=== PATIENT | male | born 1935 | race Caucasian/White ===

== ENCOUNTER 2018-06-30 18:13 | Observation (INO) ==
[2018-06-30] MEDS ORDERED: traMADol 50 MG TABLET PO PRN (21:24)
[2018-06-30] MEDS ORDERED: Acetaminophen 325 MG TABLET PO PRN (21:24)
[2018-06-30] MEDS ORDERED: Naloxone 0.4 MG/ML INJ IVP PRN (21:24)
[2018-06-30] MEDS ORDERED: D5% in Water 1,000 ML IVC PRN (21:26)
[2018-06-30] MEDS ORDERED: Dextrose Gel 15 GM/37.5 ML TUBE PO PRN ×2 (21:26)
[2018-06-30] MEDS ORDERED: *HR* Dextrose 50 % in Water (Syg) 50 ML SYRINGE IVP PRN (21:26)
--- NOTE | 2018-06-30 21:34 | Internal Med History&Physical ---
<Ryan Mcintosh - Last Filed: 06/30/18 22:09> Date of Encounter: 06/30/18 Time of Encounter: 21:29 Internal Medicine - H&P: HPI Chief complaint: weakness Admitted From: Hospital to Hospital Transfer Plans for Post Hospital Care: Home History of present illness: Mr. Rubio is a 82 year old male with past medical history of CVA with residual weakness, type 2 diabetes, hyperlipidemia, hypertension who presents to [facility] emergency department with complaint of weakness since this morning. He states that he felt sudden onset weakness while sitting on the toilet and was unable to get back up. He spent approximately 3 hours on the toilet before his found him and called EMS. He states he has experienced this one time before approximately 5 months ago where he was diagnosed with UTI and discharged without being admitted on antibiotic. He denies any focal weakness or loss of consciousness during this time. He does admit to some dysuria but denies any frequency, hematuria, flank pain, changes in bowel movements, dizziness, lightheadedness, nausea, vomiting, flank pain, fevers, chills. He states his bowel movements have been normal without any evidence of blood and is not experiencing any confusion or altered mental status. In the [facility] instrument, vitals were grossly unremarkable. Laboratory results were significant for a white count of 22.4 and a BUNs/creatinine of 28/ 1.90 which is around his baseline. They did not obtain a head CT at that time which was negative for acute process as well as a chest x-ray which showed possible atelectasis otherwise within normal limits. Urinalysis shows evidence of nitrites and leukocyte esterase with bacteria and was sent for culture. Those results are pending. Past medical history as above Past surgical history noncontributory Past social history: Remote history of smoking, drinks 1-2 glasses of wine per week, denies any drug use Family history: Patient denies Past Med Surg Social Fam HX - Past Medical History Medical history: CVA, diabetes, hyperlipidemia, hypertension Additional medical history: CVA x4 Psychiatric history: no psych history - Past Surgical History Additional surgical history: left knee surgery - Social History Smoking Status: Light tobacco smoker Smokeless Tobacco Status: No Alcohol use: none Drug use: none - Family History Father Age at : 54 Cause of : Brain tumor Hx Family Cancer: Yes (Brain Tumor) Mother Age at : 76 Internal Medicine - H&P: Meds Citalopram [CeleXA] 40 mg PO DAILY 05/15/17 [History] Clopidogrel [Plavix] 75 mg PO DAILY 05/15/17 [History] Gabapentin [Neurontin] 300 mg PO TID 05/15/17 [History] Ibuprofen [Motrin] 800 mg PO Q8HR 05/15/17 [History] Lisinopril/Hydrochlorothiazide [Zestoretic 10-12.5 mg Tablet] 1 each PO DAILY [History] Simvastatin [Zocor] 20 mg PO HS 05/15/17 [History] 3 Allergy/AdvReac Type Severity Reaction Status Date / Time Penicillins Allergy See Verified 06/12/18 22:32 Comments All Systems PM: A 10-system review of systems was performed and is negative for pertinent findings except as documented above in the HPI. - Constitutional Constitutional: weakness, no anorexia, no chills, no fever(s), no falls - Cardiovascular Cardiovascular ROS IM: edema (Chronic), no chest pain, no diaphoresis, no dyspnea, no dyspnea on exertion - Respiratory Respiratory: no cough, no dyspnea, no wheezing - Gastrointestinal Gastrointestinal: no abdominal pain, no constipation, no diarrhea, no hematochezia, no melena, no nausea, no vomiting - Genitourinary Genitourinary ROS male: dysuria, no flank pain, no urinary frequency, no urinary hesitancy, no urinary incontinence, no urinary urgency - Musculoskeletal Musculoskeletal ROS IM: tingling (Chronic secondary to peripheral neuropathy), no numbness - Integumentary Integumentary IM: no rash - Neurological Neurological ROS: tingling, no confusion, no dizziness, no focal weakness, no headache(s), no numbness - Constitutional Vitals: Temp Pulse Resp BP Pulse Ox 99.3 F 91 17 129/72 95 06/30/18 20:09 06/30/18 20:09 06/30/18 20:09 06/30/18 20:09 06/30/18 20:09 Exam: Gen.: Vitals noted. No acute distress. AAOx3, resting comfortably in bed HEENT: PERRL/EOMI, oropharynx clear, Normocephalic, atraumatic, mildly dry mucous membranes Cardiac: RRR, no murmur, +S1/S2 Pulmonary: CTA bilaterally, no wheezes, rales or rhonchi, equal chest expansion , decreased breath sounds at bases Abdomen: soft, nontender, BS noted, no guarding, no rebound. Extremities: 3+ BLE edema, nontender calf, no cyanosis or clubbing Neuro: A&Ox3, moves all extremities, no focal deficits. Very mild weakness of right lower extremity which is consistent with baseline Psych: Appropriate mood and behavior - Assessment and plan (1) Sepsis Current Visit: Yes Status: Acute Assessment and plan: - Sirs criteria 2/4 with suspected source of urine - Urinalysis in [facility] show signs of infection with positive nitrites, leukocyte esterase, WBCs - Patient does not appear septic at this time however he does meet criteria - Lactic acid drawn and [facility] of 1.7 - Previous urine cultures from 2017 show Klebsiella which is nearly pansensitive with only exception of Macrobid - Started on Cipro emergency department at [facility] - Heart rate 91, WBC of 22. Low suspicion for pyelonephritis at this time as he is not demonstrating systemic symptoms and is not having flank pain or tenderness - Bloody and urine cultures drawn in [facility] Plan - Continue Cipro and await culture sensitivities - Consider CT if patient does not improve or worsens - Patient appears mildly dry on exam however is tolerating a diet, we will hold off on fluids for this time and continue to monitor Qualifiers: Sepsis type: sepsis due to unspecified organism Qualified Code(s): A41.9 - Sepsis, unspecified organism (2) UTI (urinary tract infection) Current Visit: Yes Status: Acute Assessment and plan: As above for sepsis Qualifiers: Urinary tract infection type: acute cystitis Hematuria presence: without hematuria Qualified Code(s): N30.00 - Acute cystitis without hematuria (3) Diabetes mellitus Current Visit: Yes Status: Chronic Assessment and plan: - [id number] 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 - Blood sugar presentation to [facility] was 189 - We will start sliding-scale insulin low regimen - A1c with morning labs Qualifiers: Diabetes mellitus type: type 2 Diabetes mellitus residential insulin use: without residential use Diabetes mellitus complication status: with kidney complications Diabetes mellitus complication detail: with chronic kidney disease Chronic kidney disease stage: stage 3 (moderate) Qualified Code(s): E11.22 - Type 2 diabetes mellitus with diabetic chronic kidney disease; N18.3 - Chronic kidney disease, stage 3 (moderate) (4) CKD (chronic kidney disease) stage 3, GFR 30-59 ml/min Current Visit: Yes Status: Chronic Assessment and plan: - BUN/Cr of 28/1.90 which appears to be near baseline - Cr of 1.8 in May and previously 1.5-1.8 - Will continue to monitor and renally dose meds as necessary (5) HTN (hypertension) Current Visit: Yes Status: Acute Assessment and plan: - Moderately well controlled at 144/68 on presentation - Will continue home lisinopril/HCTZ as his kidney function appears stable Qualifiers: Hypertension type: essential hypertension Qualified Code(s): I10 - Essential (primary) hypertension (6) DVT prophylaxis Current Visit: Yes Status: Acute Assessment and plan: Heparin 5000 units every 12 hours (7) HLD (hyperlipidemia) Current Visit: Yes Status: Acute Assessment and plan: continue home statin Qualifiers: Hyperlipidemia type: unspecified Qualified Code(s): E78.5 - Hyperlipidemia , unspecified - Time Spent With Patient Total time spent is greater than 50% in coordination of care (as documented) at patient's floor/unit and/or counseling patient: <Felipe Cain - Last Filed: 06/30/18 23:45> Date of Encounter: 06/30/18 Internal Medicine - H&P: HPI History of present illness: Mr. Rubio is a 82 year old male All Systems PM: A 10-system review of systems was performed and is negative for pertinent findings except as documented above in the HPI. - Constitutional Vitals: Temp Pulse Resp BP Pulse Ox 98.8 F 88 16 135/66 99 06/30/18 22:46 06/30/18 22:46 06/30/18 22:46 06/30/18 22:46 06/30/18 22:46 Internal Med - H&P Results - Labs CBC & Chem 7: 06/30/18 23:03 Labs: Short CBC 06/30/18 Range/Units 23:03 WBC 22.6 H (4.3-11.1) K/mcL Hgb 12.0 L (12.9-16.9) g/dL Hct 34.4 L (37.5-50.1) % Plt Count 161 (140-400) K/mcL Neutrophils # 18.4 H (1.6-8.9) K/mcL - Attending Attestation I have seen and examined the patient with Dr. Mcintosh and agree with his/ her assessment and plan. 82-year-old male with past sacral history of CAD, diabetes, hypertension, CVA, previous UTI, presented to the ED with weakness. He was temp of 99.3 and heart rate of 91 on presentation. His physical exam was benign with soft, nontender abdomen without CVA tenderness. Lab work showed leukocytosis of 22 and creatinine at 1.9 which is close to his baseline. Urinalysis was positive for leukocyte esterase and nitrite. Otherwise, lactic acid was normal and chest x-ray/CT head were unremarkable. He was given IV Cipro and was transferred to [facility] for further management. 2 out of 4 SIRS criteria positive for leukocytosis and HR >90. Source of infection from urine. Will treat as sepsis secondary to UTI. Previous urine culture was positive for Klebsiella pneumonia which was sensitive to Cipro therefore will continue IV Cipro given that he has unknown allergy to penicillin. We will also start Flomax given the high likelihood of underlying BPH. Follow-up on urine culture. Felipe Cain MD - Assessment and plan (1) UTI (urinary tract infection) Current Visit: Yes Status: Acute Qualifiers: Urinary tract infection type: acute cystitis Hematuria presence: without hematuria Qualified Code(s): N30.00 - Acute cystitis without hematuria (2) Sepsis Current Visit: Yes Status: Acute Qualifiers: Sepsis type: sepsis due to unspecified organism Qualified Code(s): A41.9 - Sepsis, unspecified organism (3) DVT prophylaxis Current Visit: Yes Status: Acute (4) Diabetes mellitus Current Visit: Yes Status: Chronic Qualifiers: Diabetes mellitus type: type 2 Diabetes mellitus residential insulin use: without exterminator helper use Diabetes mellitus complication status: with kidney complications Diabetes mellitus complication detail: with chronic kidney disease Chronic kidney disease stage: stage 3 (moderate) Qualified Code(s): E11.22 - Type 2 diabetes mellitus with diabetic chronic kidney disease; N18.3 - Chronic kidney disease, stage 3 (moderate) (5) CKD (chronic kidney disease) stage 3, GFR 30-59 ml/min Current Visit: Yes Status: Chronic (6) HTN (hypertension) Current Visit: Yes Status: Acute Qualifiers: Hypertension type: essential hypertension Qualified Code(s): I10 - Essential (primary) hypertension (7) HLD (hyperlipidemia) Current Visit: Yes Status: Acute Qualifiers: Hyperlipidemia type: unspecified Qualified Code(s): E78.5 - Hyperlipidemia , unspecified - Time Spent With Patient Total time spent is greater than 50% in coordination of care (as documented) at patient's floor/unit and/or counseling patient:
[2018-06-30] MEDS: *HR* Heparin 5,000 UNIT/ML VIAL SQ SCH (23:11)
[2018-06-30 23:17] LABS: Basophils % 0.2 %; Eosinophils % 0.1 %; Immature Granulocytes % 0.7 % (0-4); Segmented Neutrophils % 81.2 %
[2018-06-30 23:20] LABS: Basophils # 0.1 K/mcL (0.0-0.2); Hematocrit 34.4 % (37.5-50.1); Lymphocytes # 2.2 K/mcL (0.6-4.6); Lymphocytes % 9.5 %; Mean Corpuscular HGB Conc 34.9 g/dL (31.6-35.5); Mean Corpuscular Hemoglobin 30.5 pg (28.0-33.3); Mean Corpuscular Volume 87.5 fL (83.0-100.0); Mean Platelet Volume 9.2 fL (9.4-12.4); Monocytes # 1.9 K/mcL (0.0-1.3); Monocytes % 8.3 %; Neutrophils # 18.4 K/mcL (1.6-8.9); Platelet Count 161 K/mcL (140-400); Red Blood Count 3.93 M/mcL (4.19-5.50); Red Cell Distribution Width 13.7 % (11.5-14.5)
[2018-06-30 23:36] LABS: Platelet Estimate Normal (Normal)
[2018-07-01 04:46] LABS: Calcium 8.5 mg/dL (8.6-10.3); Potassium 3.9 mEq/L (3.5-5.1)
[2018-07-01 05:20] LABS: Basophils % 0.2 %; Eosinophils % 0.2 %; Hematocrit 33.7 % (37.5-50.1); Hemoglobin 11.5 g/dL (12.9-16.9); Immature Granulocytes % 0.5 % (0-4); Lymphocytes # 2.1 K/mcL (0.6-4.6); Lymphocytes % 11.9 %; Mean Corpuscular HGB Conc 34.1 g/dL (31.6-35.5); Mean Corpuscular Hemoglobin 31.2 pg (28.0-33.3); Mean Corpuscular Volume 91.3 fL (83.0-100.0); Mean Platelet Volume 8.9 fL (9.4-12.4); Monocytes # 1.5 K/mcL (0.0-1.3); Monocytes % 8.3 %; Neutrophils # 13.8 K/mcL (1.6-8.9); Platelet Count 216 K/mcL (140-400); Red Blood Count 3.69 M/mcL (4.19-5.50); Red Cell Distribution Width 13.9 % (11.5-14.5); Segmented Neutrophils % 78.9 %
[2018-07-01] MEDS: Insulin LISPRO 300 UNITS/3 ML VIAL SQ SCH ×4 (08:25→20:43)
[2018-07-01] MEDS: Gabapentin 300 MG CAPSULE PO SCH ×3 (08:26→20:16)
[2018-07-01] MEDS: *HR* Heparin 5,000 UNIT/ML VIAL SQ SCH ×3 (08:26→23:44)
[2018-07-01 09:29] LABS: Estimated Average Glucose 140 mg/dl; Hemoglobin A1C 6.5 %
--- NOTE | 2018-07-01 17:06 | Internal Med Progress Note ---
Hospitalist Progress Note - Encounter Date of Encounter: 07/01/18 Time of Encounter: 09:55 - Subjective Interval History: Pt was seen and assessed at bedside at 0955. Pt is alert and awake, answers questions appropriately He states that he is feeling better than yesterday, but isn't back to baseline. - Exam Vitals: Temp Pulse Resp BP Pulse Ox 99.7 F H 97 16 149/84 94 07/01/18 15:41 07/01/18 15:41 07/01/18 15:41 07/01/18 15:41 07/01/18 15:41 Exam: General: Pt resting quietly on bed, no distress. Skin: pwd, no rashes, lesions, redness Neurological: Pt is alert and awake, oriented x 3, Speech is clear, PERRLA, EOMI , no nystagmus, no pronator drift. strength equal x 4 extremities HEENT: mucous mumbranes moist, no conjuctival pallor Neck: supple, no tracheal deviation, no lymphadenopathy, tenderness, no thyromegaly Heart: S1S2 heard without gallops, clicks, murmurs, no bradycardia or tachycardia, pt has no peripheral edema, pedal and radial pulses palpable bilaterally. Lungs: clear throughout without wheezing, rales, or ronchi, respirations are unlabored Abdomen: soft and non tender with bowel sound present, no hepatomegaly. Psych: Normal affect with good eye contact - Assessment and Plan (1) UTI (urinary tract infection) Current Visit: Yes Status: Inactive Assessment and Plan: As above for sepsis. Continue Cipro. (2) Sepsis Current Visit: Yes Status: Acute Assessment and Plan: - Sirs criteria 2/4 with suspected source is urine - Urinalysis in [facility] showed signs of infection with positive nitrites, leukocyte esterase, WBCs - Lactic acid within normal limits - Previous urine cultures from 2017 show Klebsiella which is nearly pansensitive with only exception of Macrobid - Started on Cipro IV, continue. - Heart rate 81, leukocytosis improving. 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 - A1c 6.5%. Well controlled. (5) CKD (chronic kidney disease) stage 3, GFR 30-59 ml/min Current Visit: Yes Status: Chronic Assessment and Plan: 1.76/37 Appears to be at baseline. Continue to avoid nephrotoxins. (6) HTN (hypertension) Current Visit: Yes Status: Chronic Assessment and Plan: Well-controlled. Continue current medications. - Will continue home lisinopril/HCTZ as his kidney function appears stable (7) HLD (hyperlipidemia) Current Visit: Yes Status: Acute Assessment and Plan: Chronic. Continue home medications. - Time Spent with Patient Total time spent is greater than 50% in coordination of care (as documented) at patient's floor/unit and/or counseling patient: less than 15 minutes Plan of Care Discussed with: patient Internal Medicine: Result - Labs CBC & Chem 7: 07/01/18 04:09 07/01/18 04:09 Labs: Short CBC 06/30/18 07/01/18 Range/Units 23:03 04:09 WBC 22.6 H 17.5 H (4.3-11.1) K/mcL Hgb 12.0 L 11.5 L (12.9-16.9) g/dL Hct 34.4 L 33.7 L (37.5-50.1) % Plt Count 161 216 (140-400) K/mcL Neutrophils # 18.4 H 13.8 H (1.6-8.9) K/mcL BMP 07/01/18 04:09 Sodium 135 L Potassium 3.9 Chloride 102 Carbon Dioxide 26 BUN 26 H Creatinine 1.76 H Glucose 146 H Calcium 8.5 L Consult Discharge Plan - Plan Referrals: Blair Lemus MD [Primary Care Provider] - (1) UTI (urinary tract infection) Qualifiers: Urinary tract infection type: acute cystitis Hematuria presence: without hematuria Qualified Code(s): N30.00 - Acute cystitis without hematuria (2) Sepsis Qualifiers: Sepsis type: sepsis due to unspecified organism Qualified Code(s): A41.9 - Sepsis, unspecified organism (4) Diabetes mellitus Qualifiers: Diabetes mellitus type: type 2 Diabetes mellitus terminal operator insulin use: without group home use Diabetes mellitus complication status: with kidney complications Diabetes mellitus complication detail: with chronic kidney disease Chronic kidney disease stage: stage 3 (moderate) Qualified Code(s): E11.22 - Type 2 diabetes mellitus with diabetic chronic kidney disease; N18.3 - Chronic kidney disease, stage 3 (moderate) (6) HTN (hypertension) Qualifiers: Hypertension type: essential hypertension Qualified Code(s): I10 - Essential (primary) hypertension (7) HLD (hyperlipidemia) Qualifiers: Hyperlipidemia type: unspecified Qualified Code(s): E78.5 - Hyperlipidemia, unspecified
[2018-07-02 05:23] LABS: Basophils % 0.3 %; Eosinophils # 0.1 K/mcL (0.0-0.6); Eosinophils % 0.8 %; Hematocrit 34.1 % (37.5-50.1); Hemoglobin 11.4 g/dL (12.9-16.9); Immature Granulocytes % 0.4 % (0-4); Lymphocytes # 1.9 K/mcL (0.6-4.6); Lymphocytes % 12.2 %; Mean Corpuscular HGB Conc 33.4 g/dL (31.6-35.5); Mean Corpuscular Hemoglobin 30.7 pg (28.0-33.3); Mean Corpuscular Volume 91.9 fL (83.0-100.0); Mean Platelet Volume 8.5 fL (9.4-12.4); Monocytes # 1.4 K/mcL (0.0-1.3); Monocytes % 9.2 %; Platelet Count 174 K/mcL (140-400); Red Blood Count 3.71 M/mcL (4.19-5.50); Red Cell Distribution Width 13.8 % (11.5-14.5); Segmented Neutrophils % 77.1 %
[2018-07-02 05:49] LABS: Calcium 8.4 mg/dL (8.6-10.3); Potassium 3.6 mEq/L (3.5-5.1)
[2018-07-02] MEDS: Gabapentin 300 MG CAPSULE PO SCH ×3 (09:11→20:28)
[2018-07-02] MEDS: *HR* Heparin 5,000 UNIT/ML VIAL SQ SCH ×3 (09:12→23:38)
[2018-07-02] MEDS: Insulin LISPRO 300 UNITS/3 ML VIAL SQ SCH ×4 (09:13→20:22)
--- NOTE | 2018-07-02 17:24 | Internal Med Progress Note ---
Hospitalist Progress Note - Encounter Date of Encounter: 07/02/18 Time of Encounter: 09:40 - Subjective Interval History: Pt was seen and assessed at bedside at 0940. Pt is alert and awake, answers questions appropriately. Pt has been up to bedside today and tolerates it well. He states that he is feeling better than yesterday, but isn't back to baseline. - Exam Vitals: Temp Pulse Resp BP Pulse Ox 97.3 F L 88 17 142/73 95 07/02/18 15:48 07/02/18 15:48 07/02/18 15:48 07/02/18 15:48 07/02/18 15:48 Exam: General: Pt resting quietly on bed, no distress. Skin: pwd, no rashes, lesions, redness Neurological: Pt is alert and awake, oriented x 3, Speech is clear, PERRLA, EOMI , no nystagmus, no pronator drift. strength equal x 4 extremities HEENT: mucous mumbranes moist, no conjuctival pallor Neck: supple, no tracheal deviation, no lymphadenopathy, tenderness, no thyromegaly Heart: S1S2 heard without gallops, clicks, murmurs, no bradycardia or tachycardia, pt has no peripheral edema, pedal and radial pulses palpable bilaterally. Lungs: clear throughout without wheezing, rales, or ronchi, respirations are unlabored Abdomen: soft and non tender with bowel sound present, no hepatomegaly. Obese, rounded. Psych: Normal affect with good eye contact - Assessment and Plan (1) UTI (urinary tract infection) Current Visit: Yes Status: Acute Assessment and Plan: As above for sepsis. Continue IV Cipro. Pt is asymptomatic. (2) Sepsis Current Visit: Yes Status: Acute Assessment and Plan: - Sirs criteria 2/4 with suspected source is urine (leukocytosis and tachycardia ) - Urinalysis in [place] ER showed signs of infection with positive nitrites, leukocyte esterase, WBCs - Lactic acid within normal limits - Urine cx shows Gram negative rods - Started on Cipro IV, continue. - Blood cultures pending. Plan - Continue Cipro and await culture sensitivities - Consider CT if patient does not improve or worsens (3) DVT prophylaxis Current Visit: Yes Status: Acute Assessment and Plan: Heparin 5000 BID (4) Diabetes mellitus Current Visit: Yes Status: Chronic Assessment and Plan: Type 2 diabetes CKD III Sliding scale insulin, Accu-Cheks before meals at bedtime, diabetic diet. - A1c 6.5%. Well controlled. (5) CKD (chronic kidney disease) stage 3, GFR 30-59 ml/min Current Visit: Yes Status: Chronic Assessment and Plan: 1., renal function continues to improve Appears to be at baseline. Continue to avoid nephrotoxins. (6) HTN (hypertension) Current Visit: Yes Status: Chronic Assessment and Plan: Well-controlled. Continue current medications. Will continue home lisinopril/HCTZ as his kidney function appears stable (7) HLD (hyperlipidemia) Current Visit: Yes Status: Chronic Assessment and Plan: Chronic. Continue home medications. (8) Leukocytosis Current Visit: Yes Status: Acute Assessment and Plan: Likely secondary to UTI, improving. Continue IV antbiotics, monitor labs and vitals. - Time Spent with Patient Total time spent is greater than 50% in coordination of care (as documented) at patient's floor/unit and/or counseling patient: less than 15 minutes Plan of Care Discussed with: patient Internal Medicine: Result - Labs CBC & Chem 7: 07/02/18 04:49 07/02/18 04:49 Labs: Short CBC 07/02/18 Range/Units 04:49 WBC 15.6 H (4.3-11.1) K/mcL Hgb 11.4 L (12.9-16.9) g/dL Hct 34.1 L (37.5-50.1) % Plt Count 174 (140-400) K/mcL Neutrophils # 12.0 H (1.6-8.9) K/mcL BMP 07/02/18 04:49 Sodium 137 Potassium 3.6 Chloride 104 Carbon Dioxide 23 BUN 24 H Creatinine 1.53 H Glucose 147 H Calcium 8.4 L Consult Discharge Plan - Plan Referrals: Blair Lemus MD [Primary Care Provider] - (1) UTI (urinary tract infection) Qualifiers: Urinary tract infection type: acute cystitis Hematuria presence: without hematuria Qualified Code(s): N30.00 - Acute cystitis without hematuria (2) Sepsis Qualifiers: Sepsis type: sepsis due to unspecified organism Qualified Code(s): A41.9 - Sepsis, unspecified organism (4) Diabetes mellitus Qualifiers: Diabetes mellitus type: type 2 Diabetes mellitus fci insulin use: without terminal makeup operator use Diabetes mellitus complication status: with kidney complications Diabetes mellitus complication detail: with chronic kidney disease Chronic kidney disease stage: stage 3 (moderate) Qualified Code(s): E11.22 - Type 2 diabetes mellitus with diabetic chronic kidney disease; N18.3 - Chronic kidney disease, stage 3 (moderate) (6) HTN (hypertension) Qualifiers: Hypertension type: essential hypertension Qualified Code(s): I10 - Essential (primary) hypertension (7) HLD (hyperlipidemia) Qualifiers: Hyperlipidemia type: unspecified Qualified Code(s): E78.5 - Hyperlipidemia, unspecified (8) Leukocytosis Qualifiers: Leukocytosis type: unspecified Qualified Code(s): D72.829 - Elevated white blood cell count, unspecified
[2018-07-03 05:30] LABS: Basophils % 0.3 %; Eosinophils # 0.2 K/mcL (0.0-0.6); Eosinophils % 1.5 %; Hematocrit 34.2 % (37.5-50.1); Hemoglobin 11.3 g/dL (12.9-16.9); Immature Granulocytes % 0.4 % (0-4); Lymphocytes # 1.9 K/mcL (0.6-4.6); Lymphocytes % 14.9 %; Mean Corpuscular Hemoglobin 30.5 pg (28.0-33.3); Mean Corpuscular Volume 92.2 fL (83.0-100.0); Mean Platelet Volume 8.6 fL (9.4-12.4); Monocytes # 1.1 K/mcL (0.0-1.3); Neutrophils # 9.3 K/mcL (1.6-8.9); Platelet Count 181 K/mcL (140-400); Red Blood Count 3.71 M/mcL (4.19-5.50); Red Cell Distribution Width 13.6 % (11.5-14.5); Segmented Neutrophils % 73.9 %
[2018-07-03 05:53] LABS: Calcium 8.3 mg/dL (8.6-10.3); Potassium 3.9 mEq/L (3.5-5.1)
[2018-07-03] MEDS: Gabapentin 300 MG CAPSULE PO SCH ×3 (08:37→20:38)
[2018-07-03] MEDS: *HR* Heparin 5,000 UNIT/ML VIAL SQ SCH ×3 (08:37→23:04)
[2018-07-03] MEDS: Insulin LISPRO 300 UNITS/3 ML VIAL SQ SCH ×4 (08:37→20:39)
--- NOTE | 2018-07-03 11:02 | Discharge Summary ---
Date of Encounter: 07/03/18 Time of Encounter: 09:30 - Discharge Diagnosis (1) UTI (urinary tract infection) Priority: Primary Status: Acute Assessment and Plan: As above for sepsis. Pt is asymptomatic. Initial culture shows GNR. Proteus hauseri susceptible to Cipro. Continue po Cipro. Qualifiers: Urinary tract infection type: acute cystitis Hematuria presence: without hematuria Qualified Code(s): N30.00 - Acute cystitis without hematuria (2) Sepsis Priority: Secondary Status: Resolved Assessment and Plan: - Sirs criteria 2/4 with suspected source is urine (leukocytosis and tachycardia ) on admission - Urinalysis in [facility] showed signs of infection with positive nitrites, leukocyte esterase, WBCs - Lactic acid within normal limits - Urine cx grew Proteus hauseri - Started on Cipro IV, will continue Cipro po after discharge. - Blood cultures no growth. Qualifiers: Sepsis type: sepsis due to unspecified organism Qualified Code(s): A41.9 - Sepsis, unspecified organism (3) DVT prophylaxis Priority: Secondary Status: Acute Assessment and Plan: Heparin 5000 BID (4) Diabetes mellitus Priority: Secondary Status: Chronic Assessment and Plan: DMII, well controlled. A1c 6.5%. Continue home medications, accuchecks achs and diabetic diet. Qualifiers: Diabetes mellitus type: type 2 Diabetes mellitus post framer insulin use: without post framer use Diabetes mellitus complication status: with kidney complications Diabetes mellitus complication detail: with chronic kidney disease Chronic kidney disease stage: stage 3 (moderate) Qualified Code(s): E11.22 - Type 2 diabetes mellitus with diabetic chronic kidney disease; N18.3 - Chronic kidney disease, stage 3 (moderate) (5) CKD (chronic kidney disease) stage 3, GFR 30-59 ml/min Priority: Secondary Status: Chronic Assessment and Plan: 1.8036, renal function continues to improve Appears to be at baseline. Continue to avoid nephrotoxins. (6) HTN (hypertension) Priority: Secondary Status: Chronic Assessment and Plan: Well-controlled. Continue current medications. Qualifiers: Hypertension type: essential hypertension Qualified Code(s): I10 - Essential (primary) hypertension (7) HLD (hyperlipidemia) Priority: Secondary Status: Chronic Assessment and Plan: Chronic. Continue home medications. Qualifiers: Hyperlipidemia type: unspecified Qualified Code(s): E78.5 - Hyperlipidemia , unspecified (8) Leukocytosis Priority: Secondary Status: Acute Assessment and Plan: Likely secondary to UTI, improving, almost back to baseline. Continue antibiotics on discharge Qualifiers: Leukocytosis type: unspecified Qualified Code(s): D72.829 - Elevated white blood cell count, unspecified (9) Morbid obesity Priority: Secondary Status: Chronic Assessment and Plan: Chronic. Encourage lifestyle modifications. Hospital course: Please see assessment and plan for hospital course. Discharge discussed with: patient, nurse - Time Spent with Patient Total time spent providing and/or coordinating discharge services: Less than 30 minutes - Discharge Medications Prescriptions: Ciprofloxacin [Cipro] 500 mg PO BID #8 tablet Home Medications: Citalopram [CeleXA] 40 mg PO DAILY 05/15/17 [History] Clopidogrel [Plavix] 75 mg PO DAILY 05/15/17 [History] Gabapentin [Neurontin] 300 mg PO TID 05/15/17 [History] Simvastatin [Zocor] 20 mg PO HS 05/15/17 [History] Furosemide [Lasix] 20 mg PO DAILY 07/01/18 [History] Iron Ps Cmplx/Vit B12/FA [Poly-Iron 150 Forte Capsule] 1 cap PO DAILY 07/01/18 [ History] Multivits,Ca,Min/Iron/FA/Lycop [Centrum Men's Tablet] 3 tab PO DAILY 07/01/18 [ History] Potassium Chloride [Klor-Con 10] 10 meq PO BID 07/01/18 [History] Ciprofloxacin [Cipro] 500 mg PO BID #8 tablet 07/03/18 [Rx] Allergies/Adverse Reactions: 3 Allergy/AdvReac Type Severity Reaction Status Date / Time Penicillins Allergy See Verified 06/12/18 22:32 Comments Date of admission: 06/30/18 19:44 Primary care physician: Blair Lemus MD Consults: 07/01/18 07:15 Consult to Physical Therapy [CONS] Routine Comment: Evaluate, develop and implement POC Reason for Consult: discharge needs Does patient have active BEDREST order?: No Is patient medically & hemodynamically stable?: Yes 07/01/18 07:16 Consult to Occupational Therapy [CONS] Routine Comment: Evaluate, develop and implement POC Reason for Consult: discharge needs Does patient have active BEDREST order?: No Is patient medically & hemodynamically stable?: Yes Discharging clinician: Zaida Grissom Anticipated date of discharge: 07/03/18 - Constitutional Vitals: Temp Pulse Resp BP Pulse Ox 97.9 F 72 15 122/67 95 07/03/18 06:39 07/03/18 06:39 07/03/18 06:39 07/03/18 06:39 07/03/18 06:39 General appearance: Present: cooperative, mild distress, morbidly obese, pleasant, answers questions appropriately - Head Head exam: Present: atraumatic, normocephalic - Eye Eye exam: Present: EOMI, normal appearance, PERRL, conjuntiva pink, sclera anicteric. Absent: nystagmus Pupils: Present: PERRL - Neck Neck exam general surgery: Present: supple, trachea midline. Absent: lymphadenopathy, tenderness - Respiratory Respiratory exam: Present: CTAB. Absent: accessory muscle use, chest wall tenderness, rales, respiratory distress, rhonchi, wheezes - Cardiovascular Cardiovascular exam: Present: RRR, +S1, +S2. Absent: diastolic murmur, gallop, rubs, systolic murmur - GI/Abdominal GI/Abdominal exam: Present: normal bowel sounds, soft, no peritoneal signs. Absent: distended, hepatomegaly, tenderness - Extremities Exam Extremities exam: Present: normal capillary refill, normal inspection, pedal edema, warm. Absent: calf tenderness, cyanotic, tenderness - Neurological Exam Neurological exam: Present: alert, oriented X3, no focal deficits. Absent: altered, facial droop, speech deficit - Skin Skin exam: Present: dry, intact, normal color, warm. Absent: rash - Patient Status Disposition: Transfer Inpatient Rehab Fac Condition: Good Overall status at discharge: patient is progressing back to baseline - Discharge Instructions Instructions: Renal Failure Diet (DC) Follow Up With: Blair Lemus MD [Primary Care Provider] - - Diet and Activity Activity: as per physical therapy, increase activity as tolerated Diet: diabetic diet, low fat, low cholesterol
[2018-07-04 06:51] VITALS: BP 129/69
[2018-07-04] MEDS: Insulin LISPRO 300 UNITS/3 ML VIAL SQ SCH (08:20)
[2018-07-04] MEDS: *HR* Heparin 5,000 UNIT/ML VIAL SQ SCH (08:20)
[2018-07-04] MEDS: Gabapentin 300 MG CAPSULE PO SCH (08:20)
[2018-07-04 10:12] LABS: Basophils # 0.1 K/mcL (0.0-0.2); Basophils % 0.6 %; Eosinophils # 0.2 K/mcL (0.0-0.6); Hematocrit 36.4 % (37.5-50.1); Hemoglobin 12.3 g/dL (12.9-16.9); Immature Granulocytes % 0.7 % (0-4); Lymphocytes # 1.5 K/mcL (0.6-4.6); Lymphocytes % 13.9 %; Mean Corpuscular HGB Conc 33.8 g/dL (31.6-35.5); Mean Corpuscular Hemoglobin 31.2 pg (28.0-33.3); Mean Corpuscular Volume 92.4 fL (83.0-100.0); Mean Platelet Volume 9.9 fL (9.4-12.4); Monocytes # 0.8 K/mcL (0.0-1.3); Monocytes % 7.4 %; Neutrophils # 7.9 K/mcL (1.6-8.9); Platelet Count 197 K/mcL (140-400); Red Blood Count 3.94 M/mcL (4.19-5.50); Red Cell Distribution Width 13.3 % (11.5-14.5); Segmented Neutrophils % 75.4 %
[2018-07-04 10:52] LABS: Calcium 8.2 mg/dL (8.6-10.3); Potassium 4.1 mEq/L (3.5-5.1)
--- NOTE | 2018-07-04 10:56 | Physician Discharge Referral ---
ExtendedCare Referral Info Provider in Charge after Transfer: PCP Institutional Level of Care: Skilled - Diagnosis (1) UTI (urinary tract infection) Priority: Primary Status: Acute (2) Sepsis Priority: Secondary Status: Resolved (3) DVT prophylaxis Priority: Secondary Status: Acute (4) Diabetes mellitus Priority: Secondary Status: Chronic (5) CKD (chronic kidney disease) stage 3, GFR 30-59 ml/min Priority: Secondary Status: Chronic (6) HTN (hypertension) Priority: Secondary Status: Chronic (7) HLD (hyperlipidemia) Priority: Secondary Status: Chronic (8) Leukocytosis Priority: Secondary Status: Acute (9) Morbid obesity Priority: Secondary Status: Chronic Prognosis: Good Aware of Diagnosis: Patient Aware of Prognosis: Patient - Transfer Medications Prescriptions: Ciprofloxacin [Cipro] 500 mg PO BID #8 tablet Home Medications: Citalopram [CeleXA] 40 mg PO DAILY 05/15/17 [History] Clopidogrel [Plavix] 75 mg PO DAILY 05/15/17 [History] Gabapentin [Neurontin] 300 mg PO TID 05/15/17 [History] Simvastatin [Zocor] 20 mg PO HS 05/15/17 [History] Furosemide [Lasix] 20 mg PO DAILY 07/01/18 [History] Iron Ps Cmplx/Vit B12/FA [Poly-Iron 150 Forte Capsule] 1 cap PO DAILY 07/01/18 [ History] Multivits,Ca,Min/Iron/FA/Lycop [Centrum Men's Tablet] 3 tab PO DAILY 07/01/18 [ History] Potassium Chloride [Klor-Con 10] 10 meq PO BID 07/01/18 [History] Ciprofloxacin [Cipro] 500 mg PO BID #8 tablet 07/03/18 [Rx] Allergies/Adverse Reactions: 3 Allergy/AdvReac Type Severity Reaction Status Date / Time Penicillins Allergy See Verified 06/12/18 22:32 Comments - Respiratory Orders Smoking Cessation: Smoking cessation has been advised. For more information, call the [facility] Quit Line at 5-327-ORPH-NOW. - Lab Orders Lab Orders: CBC, U/A, Dejon 17 - Ancillary Orders May use pressure relief devices daily prn, May consult with Dentist, Community Marketing Manager, Petroleum Engineering Professor PRN - Advance Directives Code Status: Full Code - Mobility Orders Chair, Ambulate - Rehabiliation Orders Rehab Potential: Good Rehab Orders: ROM Exercises, Evaluation for Physical Therapy, Evaluation for Occupational Therapy - Treatments Skin tear care topically daily PRN per policy, May check for fecal impaction rectally daily PRN, Fleet enema rectally every other day PRN cleansing purposes - Diet Orders Regular CERTIFICATION: I certify that the transfer of the above named patient to an Extended Care Facility is necessary for the continuing treatment of the diagnosis listed. The above information is true and accurate reflection of patient's current condition. Confidential - Redisclosure prohibited without a patient's written consent.
--- NOTE | 2018-07-04 11:12 | Internal Med Progress Note ---
Hospitalist Progress Note - Encounter Date of Encounter: 07/04/18 Time of Encounter: 09:15 - Subjective Interval History: Pt was seen and assessed at bedside at 0915. Pt is alert and awake, answers questions appropriately. Pt has been up to bedside today and tolerates it well. He states that he is feeling well and is ready for discharge today. - Exam Vitals: Temp Pulse Resp BP Pulse Ox 97.9 F 86 16 129/69 94 07/04/18 06:50 07/04/18 06:50 07/04/18 06:50 07/04/18 06:50 07/04/18 06:50 Exam: General: Pt resting quietly on bed, no distress. Skin: pwd, no rashes, lesions, redness Neurological: Pt is alert and awake, oriented x 3, Speech is clear, PERRLA, EOMI , no nystagmus, no pronator drift. strength equal x 4 extremities HEENT: mucous mumbranes moist, no conjuctival pallor Neck: supple, no tracheal deviation, no lymphadenopathy, tenderness, no thyromegaly Heart: S1S2 heard without gallops, clicks, murmurs, no bradycardia or tachycardia, pt has +1 peripheral edema, pedal and radial pulses palpable bilaterally. Unchanged from vitis. Lungs: clear throughout without wheezing, rales, or ronchi, respirations are unlabored Abdomen: soft and non tender with bowel sound present, no hepatomegaly. Obese, rounded. Psych: Normal affect with good eye contact - Assessment and Plan (1) UTI (urinary tract infection) Current Visit: Yes Status: Acute Assessment and Plan: Proteus hauseri. Continue Cipro po at rehab. Pt is asymptomatic, vitals are stable. (2) Sepsis Current Visit: Yes Status: Resolved Assessment and Plan: Resolved. (3) DVT prophylaxis Current Visit: Yes Status: Acute Assessment and Plan: Heparin 5000mg BID. PT has been up to chair at bedside. (4) Diabetes mellitus Current Visit: Yes Status: Chronic Assessment and Plan: DMII, well controlled. A1c 6.5%. Continue home medications, accuchecks achs and diabetic diet. (5) CKD (chronic kidney disease) stage 3, GFR 30-59 ml/min Current Visit: Yes Status: Chronic Assessment and Plan: 2. Appears to be at baseline. Continue to avoid nephrotoxins. (6) HTN (hypertension) Current Visit: Yes Status: Chronic Assessment and Plan: Well-controlled. Stable. Continue current medications. (7) HLD (hyperlipidemia) Current Visit: Yes Status: Chronic Assessment and Plan: Chronic. Continue home medications. (8) Leukocytosis Current Visit: Yes Status: Acute Assessment and Plan: Resolved today Continue antibiotics on discharge No signs of SIRS or sepsis. (9) Morbid obesity Current Visit: Yes Status: Chronic Assessment and Plan: Chronic. Encourage lifestyle modifications. DVT Prophylaxis: as above - Time Spent with Patient Total time spent is greater than 50% in coordination of care (as documented) at patient's floor/unit and/or counseling patient: less than 15 minutes Plan of Care Discussed with: patient Internal Medicine: Result - Labs CBC & Chem 7: 07/04/18 09:15 07/04/18 09:15 Labs: Short CBC 07/04/18 Range/Units 09:15 WBC 10.4 (4.3-11.1) K/mcL Hgb 12.3 L (12.9-16.9) g/dL Hct 36.4 L (37.5-50.1) % Plt Count 197 (140-400) K/mcL Neutrophils # 7.9 (1.6-8.9) K/mcL BMP 07/04/18 09:15 Sodium 134 L Potassium 4.1 Chloride 102 Carbon Dioxide 21 L BUN 36 H Creatinine 2.18 H Glucose 229 H Calcium 8.2 L Consult Discharge Plan - Plan Instructions: Renal Failure Diet (DC) Referrals: Blair Lemus MD [Primary Care Provider] - Prescriptions: Ciprofloxacin [Cipro] 500 mg PO BID #8 tablet (1) UTI (urinary tract infection) Qualifiers: Urinary tract infection type: acute cystitis Hematuria presence: without hematuria Qualified Code(s): N30.00 - Acute cystitis without hematuria (2) Sepsis Qualifiers: Sepsis type: sepsis due to unspecified organism Qualified Code(s): A41.9 - Sepsis, unspecified organism (4) Diabetes mellitus Qualifiers: Diabetes mellitus type: type 2 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 use Diabetes mellitus complication status: with kidney complications Diabetes mellitus complication detail: with chronic kidney disease Chronic kidney disease stage: stage 3 (moderate) Qualified Code(s): E11.22 - Type 2 diabetes mellitus with diabetic chronic kidney disease; N18.3 - Chronic kidney disease, stage 3 (moderate) (6) HTN (hypertension) Qualifiers: Hypertension type: essential hypertension Qualified Code(s): I10 - Essential (primary) hypertension (7) HLD (hyperlipidemia) Qualifiers: Hyperlipidemia type: unspecified Qualified Code(s): E78.5 - Hyperlipidemia, unspecified (8) Leukocytosis Qualifiers: Leukocytosis type: unspecified Qualified Code(s): D72.829 - Elevated white blood cell count, unspecified
== END 2018-07-04 11:38 ==
LOC: 3BNU
PROVIDERS: ADMIT Family Medicine; ATTEND Family Medicine

== ENCOUNTER 2019-10-28 15:51 | Observation (INO) ==
[2019-10-28 18:01] LABS: Basophils # 0.1 K/mcL (0.0-0.2); Basophils % 0.4 %; Eosinophils # 0.2 K/mcL (0.0-0.6); Eosinophils % 1.9 %; Hematocrit 42.1 % (37.5-50.1); Hemoglobin 14.3 g/dL (12.9-16.9); Immature Granulocytes % 0.6 % (0-4); Lymphocytes # 1.6 K/mcL (0.6-4.6); Lymphocytes % 13.1 %; Mean Corpuscular Hemoglobin 32.3 pg (28.0-33.3); Mean Platelet Volume 8.7 fL (9.4-12.4); Monocytes # 0.6 K/mcL (0.0-1.3); Monocytes % 5.1 %; Neutrophils # 9.6 K/mcL (1.6-8.9); Platelet Count 209 K/mcL (140-400); Red Blood Count 4.43 M/mcL (4.19-5.50); Red Cell Distribution Width 13.1 % (11.5-14.5); Segmented Neutrophils % 78.9 %; White Blood Count 12.1 K/mcL (4.3-11.1)
[2019-10-28 18:21] LABS: BUN/Creatinine Ratio 29 (6-26); Blood Urea Nitrogen 32 mg/dL (8-23); Carbon Dioxide 24 mEq/L (23-29); Chloride 104 mEq/L (98-107); Glucose 137 mg/dL (70-105); Osmolality,Calculated 297 (280-300); Potassium 4.1 mEq/L (3.5-5.1); Sodium 139 mEq/L (136-145); eGFR For African Americans > 60 (> 60); eGFR For Non-African Americans > 60 (> 60)
[2019-10-28 18:23] LABS: Troponin I < 0.03 ng/mL (< 0.04)
[2019-10-29] MEDS ORDERED: Nicotine 2 MG GUM BC PRN (01:29)
[2019-10-29] MEDS ORDERED: Ondansetron ODT 4 MG TAB.RAPDIS SL PRN (01:29)
[2019-10-29] MEDS ORDERED: Acetaminophen 325 MG TABLET PO PRN (01:29)
[2019-10-29] MEDS ORDERED: Naloxone 0.4 MG/ML INJ IVP PRN (01:29)
[2019-10-29] MEDS ORDERED: Aspirin Enteric Coated 325 MG Tablet PO ONE (01:29)
[2019-10-29] MEDS ORDERED: D5% in Water 1,000 ML IVC PRN ×2 (01:34→07:17)
[2019-10-29] MEDS ORDERED: Dextrose Gel 15 GM/37.5 ML TUBE PO PRN ×4 (01:34→07:17)
[2019-10-29] MEDS ORDERED: *HR* Dextrose 50 % in Water (Syg) 50 ML SYRINGE IVP PRN ×2 (01:34→07:17)
[2019-10-29 03:01] LABS: Basophils # 0.1 K/mcL (0.0-0.2); Basophils % 0.4 %; Eosinophils # 0.3 K/mcL (0.0-0.6); Eosinophils % 2.9 %; Hematocrit 36.4 % (37.5-50.1); Immature Granulocytes % 0.5 % (0-4); Lymphocytes # 3.1 K/mcL (0.6-4.6); Lymphocytes % 26.3 %; Mean Corpuscular HGB Conc 33.2 g/dL (31.6-35.5); Mean Corpuscular Hemoglobin 31.5 pg (28.0-33.3); Mean Corpuscular Volume 94.8 fL (83.0-100.0); Mean Platelet Volume 8.5 fL (9.4-12.4); Monocytes # 0.8 K/mcL (0.0-1.3); Monocytes % 6.7 %; Neutrophils # 7.4 K/mcL (1.6-8.9); Platelet Count 209 K/mcL (140-400); Red Blood Count 3.84 M/mcL (4.19-5.50); Red Cell Distribution Width 13.1 % (11.5-14.5); Segmented Neutrophils % 63.2 %; White Blood Count 11.8 K/mcL (4.3-11.1)
[2019-10-29 03:03] LABS: INR 1.1; Prothrombin Time 12.1 Seconds (9.4-12.1)
[2019-10-29 03:18] LABS: Alanine Aminotransferase 12 Units/L (7-52); Albumin 3.4 g/dL (3.5-5.7); Albumin/Globulin Ratio 1.1 (1.1-2.2); Alkaline Phosphatase 59 Units/L (34-104); Aspartate Amino Transferase 11 Units/L (13-39); BUN/Creatinine Ratio 27 (6-26); Bilirubin,Total 0.6 mg/dL (0.3-1.0); Blood Urea Nitrogen 28 mg/dL (8-23); Calcium 8.4 mg/dL (8.6-10.3); Carbon Dioxide 25 mEq/L (23-29); Chloride 107 mEq/L (98-107); Chol/HDL Ratio 3.3 (0-4.9); Cholesterol 121 mg/dL (< 200); Globulin 3.1 g/dL (2.4-3.5); Glucose 112 mg/dL (70-105); HDL Cholesterol 37 mg/dL (40-59); LDL Cholesterol,Calculated 67 mg/dL (0-99); Magnesium 2.1 mg/dL (1.6-2.6); Osmolality,Calculated 296 (280-300); Phosphorous 3.6 mg/dL (2.7-4.5); Potassium 3.7 mEq/L (3.5-5.1); Sodium 140 mEq/L (136-145); Total Protein 6.5 g/dL (6.4-8.9); Triglycerides 84 mg/dL (< 150); eGFR For African Americans > 60 (> 60); eGFR For Non-African Americans > 60 (> 60)
[2019-10-29 03:22] LABS: Hemoglobin 12.1 g/dL (12.9-16.9)
[2019-10-29] MEDS: Insulin LISPRO 300 UNITS/3 ML VIAL SQ SCH ×6 (07:56→16:40)
[2019-10-29] MEDS: Nicotine 21 MG PATCH.TD24 TD SCH (08:03)
[2019-10-29] MEDS ORDERED: Perflutren Lipid Microsphere 1.3 ML in 0.9 % Sodium Chloride 8.7 ML IVP ONE (11:07)
[2019-10-29] MEDS: Gabapentin 300 MG CAPSULE PO SCH ×2 (16:38→21:31)
[2019-10-30 05:03] LABS: BUN/Creatinine Ratio 21 (6-26); Blood Urea Nitrogen 23 mg/dL (8-23); Calcium 8.5 mg/dL (8.6-10.3); Carbon Dioxide 23 mEq/L (23-29); Chloride 110 mEq/L (98-107); Glucose 95 mg/dL (70-105); Magnesium 2.1 mg/dL (1.6-2.6); Osmolality,Calculated 293 (280-300); Phosphorous 3.7 mg/dL (2.7-4.5); Potassium 3.6 mEq/L (3.5-5.1); Sodium 140 mEq/L (136-145); eGFR For African Americans > 60 (> 60); eGFR For Non-African Americans > 60 (> 60)
[2019-10-30] MEDS ORDERED: *HR* Heparin 5,000 UNIT/ML VIAL SQ SCH (06:00)
[2019-10-30] MEDS: Insulin LISPRO 300 UNITS/3 ML VIAL SQ SCH ×4 (07:44→13:05)
[2019-10-30] MEDS ORDERED: Nystatin POWDER 30 GM BOTTLE TP PRN (07:52)
[2019-10-30] MEDS ORDERED: Finasteride 5 MG TABLET PO SCH (09:00)
[2019-10-30] MEDS: Nicotine 21 MG PATCH.TD24 TD SCH (09:29)
[2019-10-30] MEDS: Gabapentin 300 MG CAPSULE PO SCH (09:38)
[2019-10-30 11:27] VITALS: BP 152/70
== END 2019-10-30 15:11 ==
LOC: 3BNU 15:51 → EMEROOARM 15:51 → SUATTDRO 19:36 → 3BNU 20:07
PROVIDERS: ADMIT Family Medicine; ATTEND Internal Medicine